=== PATIENT | female | born 1940 | race Caucasian/White ===

== ENCOUNTER → 2017-08-25 | Outpatient (CLI) | payer MEDICARE ==
[~2017-08-25] MED LIST: APIX5TAB PO; ARMO150T2 PO; ASPI-1181 PO; BUPR-93 PO; DESV50TA PO; DOXY100C2 PO; ESOM40CA PO; HYDR-4064 PO; IBAN150T PO; LEVO5TAB13 PO; LEVO75TA10 PO; MAGOX PO; MONT10TA24 PO; MORP15TA70 PO; PREG200C PO; ROSU40 PO; SIME80TA12 PO; SOLI10TA PO; THEO400T3 PO; TOPI25TA48 PO
== END | disposition home or self-care (01) ==
LOC: OIH 10:36
PROVIDERS: ATTEND Otolaryngology
DX: J32.9 Chronic sinusitis, unspecified (principal)
CPT/HCPCS: 70486

== ENCOUNTER → 2018-12-05 | Outpatient (CLI) | payer MEDICARE ==
[~2018-12-05] MED LIST changes: +AMLO2.5T4 PO; -BUPR-93 PO; -IBAN150T PO; +IBAN150T16 PO; +IOHEXOL 350 MG/ML 100ML INFUS..BTL IV ONE; +IOHEXOL-350 50ML VIAL IV ONE; +LACT10SO9 PO; -LEVO5TAB13 PO; +LIDOCAINE HCL 2% 20ML ONE; +LOSA50TA64 PO; -MAGOX PO; +MEPERIDINE-PF 25 MG/ML SYG ONE; +MIDAZOLAM HCL 1 MG/ML 2ML VIAL ONE; -MONT10TA24 PO; +NITROGLYCERIN 5 MG/ML 10 ML VIAL IV ONE; -ROSU40 PO; +SODIUM BICARB 50MEQ 50ML VIAL ONE; -THEO400T3 PO
== END | disposition home or self-care (01) ==
LOC: SHCH 14:01
PROVIDERS: ATTEND Internal Medicine Cardiovascular Disease
DX: I65.23 Occlusion and stenosis of bilateral carotid arteries (principal); I87.2 Venous insufficiency (chronic) (peripheral); I25.119 Atherosclerotic heart disease of native coronary artery with unspecified angina pectoris
CPT/HCPCS: 93880; 93970; J1644; J2175; J2250; J3490; Q9967

== ENCOUNTER 2018-12-06 06:50 | Day surgery (SDC) | payer MEDICARE ==
[2018-12-01 11:38] LABS: EOSINOPHILS % (AUTO) 3.8 % (0.0-8.0); HEMATOCRIT 40.6 % (36-48); LYMPHOCYTES % (AUTO) 37.1 % (21.0-51.0); MEAN CORPUSCULAR HGB CONC 33.3 g/dL (32.0-36.0); NEUTROPHILS % (AUTO) 47.1 % (40.0-77.0); NUCLEATED RED BLOOD CELLS 0.1 % (0.0-0.19); PLATELET COUNT (AUTO) 153 K/uL (130-400); RED BLOOD CELL COUNT(AUTO) 4.37 MIL/uL (4.00-5.50); RED CELL DISTRIBUTION WIDTH 14.6 % (11.0-15.5); WHITE BLOOD COUNT (AUTO) 4.5 K/uL (4.8-10.8)
[2018-12-01 11:45] VITALS: BP 97/61
[2018-12-01 11:46] LABS: CREATININE 0.7 mg/dL (0.5-1.5)
[2018-12-01 11:49] LABS: INR 0.96 (0.85-1.15); PARTIAL THROMBOPLASTIN TIME 29.2 SEC (26.3-35.5); PROTHROMBIN TIME 10.1 SEC (9.6-11.6)
[2018-12-01 12:05] LABS: APPEARANCE,URINE Clear (CLEAR); BILIRUBIN,URINE Negative (NEGATIVE); COLOR,URINE Yellow (YELLOW); GLUCOSE, URINE (UA) Negative (NEGATIVE); KETONES,URINE Negative (NEGATIVE); LEUKOCYTE ESTERASE ,URINE Small (NEGATIVE); NITRATE,URINE Negative (NEGATIVE); OCCULT BLOOD,URINE Negative (NEGATIVE); PROTEIN,URINE Negative (NEGATIVE); UROBILINOGEN,URINE 0.2 mg/dL (0.2-1.0)
--- NOTE | 2018-12-01 12:40 | NUR ---
HANY SPOKE WITH THELMA GOMEZ. PATENT ON HANY PER THELMA TO STOP MED 2 DAY PRIOR TO PROCEDURE.
[2018-12-01 12:45] LABS: BACTERIA,URINE Few /HPF (None Seen); RBC,URINE 0-1 /HPF (0-1)
--- NOTE | 2018-12-05 10:45 | NUR ---
ABNORMAL LABS ABNORMAL UA RESULT REPORTED TO ANGELINE VALDEZ AT [facility]. PER JOSÉ MIGUEL, UA RESULTS REPORTED TO PATRICIA SHELTON FOR DR. BELLO. NO FURTHER ORDERS GIVEN, MAY PROCEED WITH PLANNED PROCEDURE.
[2018-12-06] VITALS (11 sets, daily range): BP systolic 125–151; BP diastolic 60–88
[~2018-12-06] VITALS: Ht 149.9 cm; Wt 65.3 kg
[~2018-12-06 06:50] MED LIST changes: -IOHEXOL 350 MG/ML 100ML INFUS..BTL IV ONE; -IOHEXOL-350 50ML VIAL IV ONE; -LIDOCAINE HCL 2% 20ML ONE; -MEPERIDINE-PF 25 MG/ML SYG ONE; -MIDAZOLAM HCL 1 MG/ML 2ML VIAL ONE; -NITROGLYCERIN 5 MG/ML 10 ML VIAL IV ONE; -SODIUM BICARB 50MEQ 50ML VIAL ONE
[2018-12-06] MEDS ORDERED: SODIUM CHLORIDE 0.9% 1000ML 1,000 ML IV SCH (08:00)
[2018-12-06] MEDS ORDERED: IOHEXOL 350 MG/ML 100ML INFUS..BTL IV ONE (08:03)
[2018-12-06] MEDS ORDERED: SODIUM BICARB 8.4% 50ML SYRINGE IVP ONE (08:03)
[2018-12-06] MEDS ORDERED: LIDOCAINE HCL 1% 20 ML VIAL MISC ONE (08:03)
[2018-12-06] MEDS ORDERED: NITROGLYCERIN 5 MG/ML 10 ML VIAL IV ONE (08:03)
[2018-12-06] MEDS ORDERED: MIDAZOLAM HCL 1 MG/ML 2ML VIAL IVPB ONE (08:25)
[2018-12-06] MEDS ORDERED: MEPERIDINE-PF 25 MG/ML SYG IV ONE (08:25)
[2018-12-06] MEDS ORDERED: SODIUM CHLORIDE 0.9% 10 ML VIAL IVP SCH (09:30)
[2018-12-06] MEDS ORDERED: HEPARIN SODIUM/PF 100UNIT/ML 5ML SYRINGE IV ONE ×2 (12:30→13:42)
== END 2018-12-06 14:00 | disposition home or self-care (01) ==
LOC: DAH 06:50
PROVIDERS: ATTEND Internal Medicine Cardiovascular Disease
DX: I25.118 Atherosclerotic heart disease of native coronary artery with other forms of angina pectoris (principal); I10 Essential (primary) hypertension; E78.5 Hyperlipidemia, unspecified; F41.9 Anxiety disorder, unspecified; F32.9 Major depressive disorder, single episode, unspecified; E03.9 Hypothyroidism, unspecified; J44.9 Chronic obstructive pulmonary disease, unspecified; G47.33 Obstructive sleep apnea (adult) (pediatric); F17.210 Nicotine dependence, cigarettes, uncomplicated; D64.9 Anemia, unspecified; Z95.5 Presence of coronary angioplasty implant and graft; Z88.8 Allergy status to other drugs, medicaments and biological substances; Z79.01 Long term (current) use of anticoagulants; Z79.899 Other long term (current) drug therapy; Z88.1 Allergy status to other antibiotic agents; Z88.2 Allergy status to sulfonamides; Z79.82 Long term (current) use of aspirin; Z98.890 Other specified postprocedural states; Z82.49 Family history of ischemic heart disease and other diseases of the circulatory system; Z82.5 Family history of asthma and other chronic lower respiratory diseases
CPT/HCPCS: 36415; 71045; 80048; 81001; 85025; 85610; 85730; 93005; 93458; A4215; A4216; A4221; A4222; A4223 ×3; A4606; C1760; C1894; J1642; J1644; J2175; J2250; J3490 ×2; Q9965; Q9967; 99156; 99157

== ENCOUNTER 2019-03-06 18:29 | Observation (INO) | payer MEDICARE ==
[~2019-03-06] VITALS: Ht 149.9 cm; Wt 65.0 kg
[2019-03-06] MEDS ORDERED: ZOSYN 3.375GM+NS 50ML 50 ML IV ONE (20:32)
[2019-03-06] MEDS ORDERED: SODIUM CHLORIDE 0.9% 1000ML 1,000 ML IV ONE ×2 (20:33→22:47)
[2019-03-06 20:48] LABS: BASOPHILS % (AUTO) 0.7 % (0.0-5.0); EOSINOPHILS % (AUTO) 1.6 % (0.0-8.0); LYMPHOCYTES % (AUTO) 22.8 % (21.0-51.0); MEAN CORPUSCULAR HEMOGLOBIN 30.6 pg (27.0-33.0); MEAN CORPUSCULAR HGB CONC 33.5 g/dL (32.0-36.0); MEAN CORPUSCULAR VOLUME 91.2 fL (79-99); MONOCYTES % (AUTO) 10.8 % (3.0-13.0); NEUTROPHILS % (AUTO) 64.1 % (40.0-77.0); PLATELET COUNT (AUTO) 189 K/uL (130-400); RED BLOOD CELL COUNT(AUTO) 4.49 MIL/uL (4.00-5.50); RED CELL DISTRIBUTION WIDTH 14.3 % (11.0-15.5); WHITE BLOOD COUNT (AUTO) 7.3 K/uL (4.8-10.8)
[2019-03-06 20:52] LABS: CARBON DIOXIDE 30 mmol/L (21-32); CHLORIDE 101 mmol/L (101-111); CREATININE 1.6 mg/dL (0.5-1.5); GLOMERULAR FILTR. RATE CALC 33 mL/min (>60); GLUCOSE,RANDOM 126 mg/dL (70-105); POTASSIUM 3.5 mmol/L (3.5-5.1); SODIUM SERUM 137 mmol/L (136-145); UREA NITROGEN, BLOOD 27 mg/dL (7-18)
[2019-03-06 20:53] LABS: PARTIAL THROMBOPLASTIN TIME 26.5 SEC (26.3-35.5); PROTHROMBIN TIME 10.5 SEC (9.6-11.6)
[2019-03-06 21:05] LABS: ALANINE AMINOTRANSFERASE 33 U/L (12-78); ALBUMIN 3.2 g/dL (3.5-5.0); ASPARTATE AMINOTRANSFERASE 37 U/L (10-37); BILIRUBIN,TOTAL 0.2 mg/dL (0.2-1.0); CREATINE KINASE, TOTAL 81 U/L (21-232); MYOGLOBIN 111 ng/mL (10-92); TOTAL PROTEIN, SERUM 6.5 g/dL (6.0-8.3); TROPONIN I < 0.04 ng/mL (0.00-0.06)
[2019-03-06 21:46] LABS: APPEARANCE,URINE Clear (CLEAR); BILIRUBIN,URINE Negative (NEGATIVE); COLOR,URINE Yellow (YELLOW); GLUCOSE, URINE (UA) Negative (NEGATIVE); KETONES,URINE Negative (NEGATIVE); LEUKOCYTE ESTERASE ,URINE Small (NEGATIVE); NITRATE,URINE Negative (NEGATIVE); OCCULT BLOOD,URINE Negative (NEGATIVE); PH,URINE 5.5 (5.0-8.0); PROTEIN,URINE Trace mg/dL (NEGATIVE); UROBILINOGEN,URINE 0.2 mg/dL (0.2-1.0)
[2019-03-06 22:12] LABS: BACTERIA,URINE Few /HPF (None Seen); MUCUS,URINE Rare LPF (None Seen); RBC,URINE 0-1 /HPF (0-1); SQUAMOUS EPITHELIAL CELL,UR Few /HPF (0-2)
[2019-03-06 22:13] LABS: HYALINE CASTS, URINE 0-1 /LPF (0-1 /LPF)
[2019-03-06] MEDS ORDERED: ONDANSETRON HCL 4 MG/2 ML VIAL IVP PRN (23:45)
[2019-03-06] MEDS ORDERED: ACETAMINOPHEN 325 MG TAB PO PRN (23:45)
[2019-03-06] MEDS ORDERED: CEFTRIAXONE SODIUM 1 GM ONE (23:50)
[2019-03-07] MEDS: CEFTRIAXONE SODIUM 1 GM IVP SCH
[2019-03-07 01:00] VITALS: BP 96/50
[2019-03-07 04:15] LABS: HEMATOCRIT 37.5 % (36-48); MEAN CORPUSCULAR HEMOGLOBIN 30.7 pg (27.0-33.0); MEAN CORPUSCULAR HGB CONC 33.3 g/dL (32.0-36.0); MEAN CORPUSCULAR VOLUME 92.4 fL (79-99); NUCLEATED RED BLOOD CELLS 0.1 % (0.0-0.19); PLATELET COUNT (AUTO) 163 K/uL (130-400); RED BLOOD CELL COUNT(AUTO) 4.06 MIL/uL (4.00-5.50); RED CELL DISTRIBUTION WIDTH 14.8 % (11.0-15.5); WHITE BLOOD COUNT (AUTO) 5.5 K/uL (4.8-10.8)
[2019-03-07 04:32] LABS: CREATININE 1.1 mg/dL (0.5-1.5); MAGNESIUM 1.9 mg/dL (1.80-2.40)
[2019-03-07 04:39] VITALS: BP 109/68
[2019-03-07] MEDS: SODIUM CHLORIDE 0.9% 1000ML 1,000 ML IV SCH ×3 (05:27→20:20)
[2019-03-07] MEDS ORDERED: HYDR-4060 PO (05:47)
[2019-03-07] MEDS: IPRATROPIUM/ALBUTEROL SULFATE 3 ML SOLUTION IH PRN ×3 (06:23→18:05)
[2019-03-07] MEDS ORDERED: LIDOCAINE HCL-MPF 1% 2ML VIAL IV PRN (07:15)
[2019-03-07] MEDS ORDERED: POTASSIUM CHLORIDE 20 MEQ ERTAB PO PRN (07:15)
[2019-03-07] MEDS ORDERED: POTASSIUM CHLORIDE 10% ELIXIR 20 MEQ/15 ML UDCUP PO PRN (07:15)
[2019-03-07] MEDS ORDERED: MAGNESIUM 2GM PREMIX 50ML 50 ML IV PRN ×2 (07:15→08:45)
[2019-03-07] MEDS ORDERED: POTASSIUM CHLORIDE 20MEQ/100ML 100 ML IV PRN (07:15)
[2019-03-07 07:45] VITALS: BP 118/50
[2019-03-07] MEDS: LEVOTHYROXINE 75 MCG TABLET PO SCH (07:57)
[2019-03-07] MEDS: APIXABAN 5 MG TABLET PO SCH ×2 (07:57→20:15)
--- NOTE | 2019-03-07 08:00 | NUR ---
ASSESSMENT PT IS AAOX3 DENIES CP DENIES SOB RESTING IN BED AT THIS TIME. BREATHING PATTERN IS EVEN AND UNLABORED. NO COMPLAINTS, IV MAG REPLACEMENT IN PROGRESS, PO POTASSIUM REPLACEMENT IN PROGRESS. CALL LIGHT WITHIN REACH.
[2019-03-07] MEDS: POTASSIUM CHLORIDE 20 MEQ ERTAB PO SCH ×3 (08:49→20:15)
[2019-03-07] MEDS ORDERED: ASPIRIN 81 MG EC TAB PO SCH (09:00)
[2019-03-07] MEDS ORDERED: ONDANSETRON HCL 4 MG/2 ML VIAL IV PRN (10:15)
[2019-03-07] MEDS ORDERED: HYDROCODONE/ACETAMINOPHEN 5/325 MG TAB PO PRN (10:15)
[2019-03-07] MEDS ORDERED: GUAIFENESIN-DM 200/20 MG 10 ML PO PRN (10:15)
[2019-03-07] MEDS ORDERED: HYDRALAZINE HCL 20 MG/ML VIAL IV PRN (10:15)
[2019-03-07] MEDS ORDERED: ACETAMINOPHEN 325 MG TAB PO PRN ×2 (10:15)
[2019-03-07] MEDS ORDERED: NITROGLYCERIN 0.4 MG SL TAB SL PRN (10:15)
[2019-03-07 11:41] VITALS: BP 91/40
--- NOTE | 2019-03-07 13:00 | NUR ---
STATUS ASSISTED UP TO SHOWER, BACK TO BED. NO COMPLAINTS. MEDS GIVEN ORDERED, WATCHING TV. CALL LIGHT WITHIN REACH.
[2019-03-07] MEDS: BENZONATATE 100 MG CAPSULE PO SCH ×2 (13:06→20:15)
[2019-03-07 13:27] LABS: MAGNESIUM 2.4 mg/dL (1.80-2.40)
[2019-03-07 15:37] VITALS: BP 113/66
--- NOTE | 2019-03-07 16:45 | NUR ---
STATUS NO COMPLAINTS DENIES PAIN, RESTING IN BED. CALL LIGHT WITHIN REACH.
[2019-03-07 20:17] VITALS: BP 112/63
[2019-03-08 00:23] VITALS: BP 131/75
[2019-03-08] MEDS: CEFTRIAXONE SODIUM 1 GM IVP SCH (02:45)
[2019-03-08 04:11] VITALS: BP 146/72
[2019-03-08] MEDS: IPRATROPIUM/ALBUTEROL SULFATE 3 ML SOLUTION IH PRN (05:20)
[2019-03-08] MEDS: LEVOTHYROXINE 75 MCG TABLET PO SCH (05:56)
[2019-03-08 06:21] LABS: CREATININE 0.7 mg/dL (0.5-1.5); POTASSIUM 3.8 mmol/L (3.5-5.1)
[2019-03-08 06:52] LABS: BASOPHILS % (AUTO) 1.4 % (0.0-5.0); EOSINOPHILS % (AUTO) 2.3 % (0.0-8.0); HEMATOCRIT 38.6 % (36-48); LYMPHOCYTES % (AUTO) 36.9 % (21.0-51.0); MEAN CORPUSCULAR HEMOGLOBIN 30.6 pg (27.0-33.0); MEAN CORPUSCULAR HGB CONC 33.6 g/dL (32.0-36.0); MONOCYTES % (AUTO) 8.6 % (3.0-13.0); NEUTROPHILS % (AUTO) 50.8 % (40.0-77.0); NUCLEATED RED BLOOD CELLS 0.1 % (0.0-0.19); PLATELET COUNT (AUTO) 166 K/uL (130-400); RED BLOOD CELL COUNT(AUTO) 4.24 MIL/uL (4.00-5.50); RED CELL DISTRIBUTION WIDTH 14.4 % (11.0-15.5); WHITE BLOOD COUNT (AUTO) 6.5 K/uL (4.8-10.8)
--- NOTE | 2019-03-08 07:45 | NUR ---
ASSESSMENT ENCOUNTERED PT ASLEEP BUT AROUSEABLE WITH CPAP IN PLACE, A&OX3, CALM COOPERATIVE AND DOES NOT APPEAR TO BE IN ANY DISTRESS NOR ANY NEURO DEFICITS PRESENT. PT DENIES PAIN, SOB, NAUSEA. PT IS AMBULATORY, GAIT STEADY AND STRONG WITH STAND BY ASSIST. CALL LIGHT WITHIN REACH, FAMILY AT BEDSIDE.
[2019-03-08 08:05] VITALS: BP 152/81
[2019-03-08] MEDS ORDERED: LACTULOSE 20 GM/30 ML UDCUP PO SCH (09:00)
[2019-03-08] MEDS ORDERED: FAMOTIDINE 20MG TAB 20 MG TAB PO SCH (09:00)
[2019-03-08] MEDS ORDERED: LEVO500T2 PO (09:01)
[2019-03-08] MEDS ORDERED: MORPHINE SULFATE 2 MG/ML 1ML SYG ONE (09:41)
--- NOTE | 2019-03-08 09:45 | NUR ---
REFUSING O2 EVALUATION AND IV MORPHINE PT STATES SHE DOESN'T NEED TO EVALUATED FOR HOME O2 AND SHE PREFERS TO TAKE HER MORPHINE TABLET AT HOME AFTER DISCHARGE HEBERT JASSO UPDATED, ORDERS RECEIVED.
[2019-03-08] MEDS ORDERED: LOSA50TA64 PO (09:49)
[2019-03-08] MEDS ORDERED: AMLO2.5T4 PO (09:49)
[2019-03-08] MEDS ORDERED: MORPHINE SULFATE 2 MG/ML 1ML SYG IM SCH (10:10)
[2019-03-08] MEDS ORDERED: HEPARIN SODIUM/PF 100UNIT/ML 5ML SYRINGE IV SCH (10:15)
--- NOTE | 2019-03-08 10:30 | NUR ---
DISCHARGE INSTRUCTIONS GIVEN, PORTACATH FLUSHED WITH HEPARIN, ROJAS NEEDLE REMOVED, DISCHARGED HOME TO FAMILY VEHICLE VIA WHEELCHAIR.
== END 2019-03-08 10:40 | disposition home or self-care (01) ==
LOC: EDH 18:29 → EDHIP 23:07 → 2DH 23:57
PROVIDERS: ADMIT Internal Medicine Critical Care Medicine; ATTEND Internal Medicine Critical Care Medicine
DX: I95.9 Hypotension, unspecified (principal); N39.0 Urinary tract infection, site not specified; E87.6 Hypokalemia; I12.9 Hypertensive chronic kidney disease with stage 1 through stage 4 chronic kidney disease, or unspecified chronic kidney disease; N18.9 Chronic kidney disease, unspecified; K58.9 Irritable bowel syndrome, unspecified; J44.9 Chronic obstructive pulmonary disease, unspecified; I26.99 Other pulmonary embolism without acute cor pulmonale; M81.0 Age-related osteoporosis without current pathological fracture; E88.81 Metabolic syndrome and other insulin resistance; G47.419 Narcolepsy without cataplexy; I25.10 Atherosclerotic heart disease of native coronary artery without angina pectoris; M19.90 Unspecified osteoarthritis, unspecified site; F17.200 Nicotine dependence, unspecified, uncomplicated; Z85.3 Personal history of malignant neoplasm of breast; Z99.89 Dependence on other enabling machines and devices; Z90.710 Acquired absence of both cervix and uterus; Z79.01 Long term (current) use of anticoagulants; Z79.899 Other long term (current) drug therapy; Z88.2 Allergy status to sulfonamides; Z88.8 Allergy status to other drugs, medicaments and biological substances
CPT/HCPCS: 36415; 71045; 80048; 80053; 81001; 82550; 83605; 83735; 83874; 84132; 84145; 84484; 85025; 85027; 85610; 85730; 87040; 87088; 93005; 94640; 94664; 96361; 96365; 96366; 96367; 96368; 96375; 97039; 99291; G0378; J0696; J1642; J2543; J3475; J3480; J7030

== ENCOUNTER → 2019-06-03 | Outpatient (CLI) | payer MEDICARE ==
[~2019-06-03] MED LIST changes: -DESV50TA PO; -DOXY100C2 PO; -ESOM40CA PO; +HYDR-4060 PO; -HYDR-4064 PO; -LACT10SO9 PO; +LEVO500T2 PO; -SIME80TA12 PO
== END | disposition home or self-care (01) ==
LOC: SHCH 05-31 10:00
PROVIDERS: ATTEND Internal Medicine Cardiovascular Disease
DX: I08.0 Rheumatic disorders of both mitral and aortic valves (principal); I65.23 Occlusion and stenosis of bilateral carotid arteries
CPT/HCPCS: 93306; 93356

== ENCOUNTER → 2019-06-05 | Outpatient (CLI) | payer MEDICARE | END | disposition home or self-care (01) | LOC: SHCH 11:00 | PROVIDERS: ATTEND Internal Medicine Cardiovascular Disease | DX: I65.23 Occlusion and stenosis of bilateral carotid arteries (principal) | CPT/HCPCS: 93880 ==

== ENCOUNTER → 2019-06-27 | Outpatient (CLI) | payer MEDICARE ==
[~2019-06-27] MED LIST changes: +IOHEXOL-350 50ML VIAL IV ONE
== END | disposition home or self-care (01) ==
LOC: RAH 13:54
PROVIDERS: ATTEND Family Medicine
DX: J98.11 Atelectasis (principal); J44.9 Chronic obstructive pulmonary disease, unspecified; I51.7 Cardiomegaly; M43.8X4 Other specified deforming dorsopathies, thoracic region; R63.4 Abnormal weight loss
CPT/HCPCS: 71260; Q9967

== ENCOUNTER → 2020-10-30 | Outpatient (CLI) | payer MEDICARE ==
[~2020-10-30] MED LIST changes: -ASPI-1181 PO; +ASPI-1443 PO; -IOHEXOL-350 50ML VIAL IV ONE
== END | disposition home or self-care (01) ==
LOC: SHCH 12:17
PROVIDERS: ATTEND Internal Medicine Cardiovascular Disease
DX: I65.23 Occlusion and stenosis of bilateral carotid arteries (principal); I70.293 Other atherosclerosis of native arteries of extremities, bilateral legs; R06.02 Shortness of breath; R53.83 Other fatigue; R42 Dizziness and giddiness; Z79.899 Other long term (current) drug therapy
CPT/HCPCS: 93880; 93925

== ENCOUNTER → 2020-11-01 | Outpatient (CLI) | payer MEDICARE ==
[~2020-11-01] MED LIST changes: +REGADENOSON 0.4 MG/5 ML PF SYG IVP SCH
== END | disposition home or self-care (01) ==
LOC: SHCH 08:10
PROVIDERS: ATTEND Internal Medicine Cardiovascular Disease
DX: I25.10 Atherosclerotic heart disease of native coronary artery without angina pectoris (principal); I10 Essential (primary) hypertension; R06.09 Other forms of dyspnea; Z98.61 Coronary angioplasty status
CPT/HCPCS: 78452; 93017; 96374; A9500 ×2; J2785

== ENCOUNTER → 2022-04-29 | Outpatient (CLI) | payer OTHER ==
[~2022-04-29] MED LIST changes: -REGADENOSON 0.4 MG/5 ML PF SYG IVP SCH
== END | disposition home or self-care (01) ==
LOC: RAH 09:14
PROVIDERS: ATTEND Family Medicine
DX: R89.9 Unspecified abnormal finding in specimens from other organs, systems and tissues (principal)
CPT/HCPCS: 93922

== ENCOUNTER → 2023-01-19 | Outpatient (CLI) | payer OTHER | END | disposition home or self-care (01) | LOC: SHCH 14:03 | PROVIDERS: ATTEND Internal Medicine Cardiovascular Disease | DX: I08.0 Rheumatic disorders of both mitral and aortic valves (principal); I11.9 Hypertensive heart disease without heart failure; E78.5 Hyperlipidemia, unspecified; I65.23 Occlusion and stenosis of bilateral carotid arteries; Z95.828 Presence of other vascular implants and grafts | CPT/HCPCS: 93306; 93880 ==

== ENCOUNTER → 2023-08-03 | Outpatient (CLI) | payer OTHER | END | disposition home or self-care (01) | LOC: SHCH 15:00 | PROVIDERS: ATTEND Internal Medicine Cardiovascular Disease | DX: I87.2 Venous insufficiency (chronic) (peripheral) (principal); R60.9 Edema, unspecified; R60.0 Localized edema; R42 Dizziness and giddiness; R06.09 Other forms of dyspnea; Z79.899 Other long term (current) drug therapy | CPT/HCPCS: 93970 ==

== ENCOUNTER 2023-09-20 05:48 | Day surgery (SDC) | payer OTHER ==
[2023-09-17 12:09] VITALS: BP 107/65; PULSE 83; RESP 16
[2023-09-17 12:24] LABS: BASOPHILS # (AUTO) 0.05 K/uL (0.00-0.20); EOSINOPHILS # (AUTO) 0.21 K/uL (0.00-0.70); EOSINOPHILS % (AUTO) 4.3 % (0.0-8.0); HEMATOCRIT 42.7 % (36-48); IMMATURE GRANULOCYTE ABSOLUTE 0.01 K/uL (0-1); LYMPHOCYTES # (AUTO) 1.3 K/uL (1.0-4.8); LYMPHOCYTES % (AUTO) 26.1 % (21.0-51.0); MEAN CORPUSCULAR HEMOGLOBIN 29.5 pg (27.0-33.0); MEAN CORPUSCULAR HGB CONC 32.1 g/dL (32.0-36.0); MONOCYTES # (AUTO) 0.3 K/uL (0.1-1.0); MONOCYTES % (AUTO) 6.9 % (3.0-13.0); NEUTROPHILS % (AUTO) 61.5 % (40.0-77.0); PLATELET COUNT (AUTO) 201 K/uL (130-400); RED BLOOD CELL COUNT(AUTO) 4.64 MIL/uL (4.00-5.50); RED CELL DISTRIBUTION WIDTH 15.4 % (11.0-15.5); WHITE BLOOD COUNT (AUTO) 4.9 K/uL (4.8-10.8)
[2023-09-17 12:35] LABS: INR <= 0.93 (0.85-1.15); PROTHROMBIN TIME 10.3 SEC (9.6-11.6)
[2023-09-17 12:36] LABS: APPEARANCE,URINE CLEAR (CLEAR); BILIRUBIN,URINE NEGATIVE (NEGATIVE); COLOR,URINE YELLOW (YELLOW); GLUCOSE, URINE (UA) NEGATIVE (NEGATIVE); KETONES,URINE NEGATIVE (NEGATIVE); LEUKOCYTE ESTERASE ,URINE 75 Leu/uL (NEGATIVE); NITRATE,URINE NEGATIVE (NEGATIVE); OCCULT BLOOD,URINE NEGATIVE (NEGATIVE); PROTEIN,URINE NEGATIVE (NEGATIVE); UROBILINOGEN,URINE 0.2 mg/dL (0.2-1.0)
[2023-09-17 12:36] LABS: PARTIAL THROMBOPLASTIN TIME 27.6 SEC (26.3-35.5); POTASSIUM 4.2 mmol/L (3.5-5.1)
[2023-09-17 12:42] LABS: ADD UA MICROSCOPIC YES
[2023-09-17 12:44] LABS: BACTERIA,URINE RARE /HPF (None Seen); MUCUS,URINE RARE LPF (None Seen); SQUAMOUS EPITHELIAL CELL,UR FEW /HPF (0-2); WBC,URINE 26-50 /HPF (0-1)
[2023-09-17 12:51] LABS: B-TYPE NATRIURETIC PEPTIDE 41 pg/mL (0-100)
[~2023-09-20] VITALS: Ht 149.9 cm; Wt 57.3 kg
[2023-09-20] VITALS (7 sets, daily range): BP systolic 109–157; BP diastolic 57–94; PULSE 60–68; RESP 14–16
[~2023-09-20 05:48] MED LIST changes: -AMLO2.5T4 PO; -APIX5TAB PO; -ARMO150T2 PO; +ASCO500C18 PO; +CALC-1125 PO; +CETI-89 PO; +CHOL500051 PO; +COQ10 PO; +CYAN-106 PO; +DONE10TA43 PO; +DOXY100C5 PO; +LACT10SO95 PO; -LEVO500T2 PO; -LOSA50TA64 PO; +MIRA50TA PO; +MONT-39 PO; -PREG200C PO; +PRESERVISION PO; +ROSU20TA23 PO; +SERT-440 PO; -SOLI10TA PO; +SOLIFENACIN PO; +THEO400T3 PO; -TOPI25TA48 PO
[2023-09-20] MEDS: 0.9%NACL 1000ML 1,000 ML IV ONE (06:24)
[2023-09-20] MEDS ORDERED: LIDOCAINE HCL 400MG/20ML VIAL ONE (07:21)
[2023-09-20] MEDS ORDERED: SODIUM BICARB 50MEQ 50ML VIAL 50 ML ONE (07:21)
[2023-09-20] MEDS ORDERED: MIDAZOLAM HCL 1 MG/ML 2ML VIAL ONE ×2 (07:22→07:40)
[2023-09-20] MEDS ORDERED: FENTANYL CITRATE PF 50 MCG/1 ML 2ML VIAL ONE (07:22)
[2023-09-20] MEDS ORDERED: IOHEXOL-350 75 ML VIAL IV ONE (07:23)
[2023-09-20] MEDS ORDERED: IOHEXOL-350 50ML VIAL IV ONE (07:29)
[2023-09-20] MEDS ORDERED: MEPERIDINE-PF 25 MG/ML SYG ONE (07:40)
[2023-09-20] MEDS ORDERED: 0.9%NACL 10ML VIAL IVP SCH (08:30)
[2023-09-20] MEDS: ACETAMINOPHEN 325 MG TAB PO ONE (09:40)
[2023-09-20] MEDS: HEPARIN PF LOCK 500 UNIT/5ML IV ONE (10:02)
== END 2023-09-20 10:10 | disposition home or self-care (01) ==
LOC: DAH 05:48
PROVIDERS: ATTEND Internal Medicine Cardiovascular Disease
DX: I82.401 Acute embolism and thrombosis of unspecified deep veins of right lower extremity (principal); D64.9 Anemia, unspecified; J44.9 Chronic obstructive pulmonary disease, unspecified; G47.33 Obstructive sleep apnea (adult) (pediatric); Z88.2 Allergy status to sulfonamides; Z79.01 Long term (current) use of anticoagulants; Z79.899 Other long term (current) drug therapy
CPT/HCPCS: 80048; 83880; 85025; 85610; 85730; 87088; 81001; 36415; 71045; 93005; 37191; A4606; C1769; C1894 ×2; C1880; C1760; J3010; J3490 ×2; J1642; J7030; J2250 ×2; J2175; J1644; Q9967; A4215; A4222; A4221; A4663; A4216; A4223 ×3; 99156; 99157

== ENCOUNTER → 2024-04-20 | Outpatient (CLI) | payer OTHER ==
[~2024-04-20] MED LIST changes: -CETI-89 PO; +CETI10TA57 PO; -DOXY100C5 PO; +FLUT16H EN; +LACT-451 PO; -LACT10SO95 PO; +LIFI1DRO OP; +MORP-108 PO; -MORP15TA70 PO; +PANT40TA PO; -ROSU20TA23 PO; +ROSU40TA88 PO; -SOLIFENACIN PO
--- NOTE | 2024-04-20 13:59 | HMCIMG ---
US PELVIC NON-OB COMP REASON: ABN BLEEDING COMPARISON: None TECHNIQUE: Routine pelvic sonogram was performed. FINDINGS: There are normal-appearing urinary bladder. Uterus and ovaries are absent. There are no masses in the uterine bed. Adnexal regions appear unremarkable as well. IMPRESSION: 1. Absent uterus, otherwise negative.
== END | disposition home or self-care (01) ==
LOC: RAH 13:08
PROVIDERS: ATTEND Family Medicine
DX: N93.9 Abnormal uterine and vaginal bleeding, unspecified (principal); Z90.710 Acquired absence of both cervix and uterus; Z90.722 Acquired absence of ovaries, bilateral
CPT/HCPCS: 76856

== ENCOUNTER → 2024-07-05 | Outpatient (CLI) | payer OTHER ==
--- NOTE | 2024-07-10 14:53 | HMCSR ---
APPROVED REPORT EXAM: Two-dimensional and M-mode echocardiogram with Doppler and color Doppler. INDICATION ICD: Aortic valve disorders I35.0 2D Dimensions RVDd3.2 cmLVEF(%)55.0 (>50%)LVED Vol(simp.)71.0 mL IVSd1.0 (0.7-1.1cm)FS(%)27 %LVES Vol(simp.)34.0 mL LVDd4.4 (3.8-5.6cm)Ao Root(2D)2.9 (2.0-3.7cm)LVEF(%, simp.)53 % PWd0.9 (0.7-1.1cm)LVOT diam2.0 (1.8-2.4cm)LA ESV INDEX (BP)36.69 mL/m2 LVDs3.2 (2.5-4.0cm)IVC diam0.9 cm Aortic Valve AoV Vmax2.6 m/Alber Peak GR26.4 mmHgLVOT Vmax1.3 m/s AoV VTI0.5 mAo Mean GR13.9 mmHgLVOT VTI0.28 m KIKI (VMAX)1.9 cm2Al P1/2T408 msAVA (VTI) 1.9 cm2 Mitral Valve MV E Vmax83.6 cm/sDECEL Uzom768 msMV Peak GR10 mmHg MV A Vqle275.1 cm/sP 1/2 T108 msMV Mean GR2 mmHg E/A ratio0.6MVA (PHT)2.0 cm2MVA (VTI)2.2 cm2 TDI E/E' Pjisdr93.4E/E' Hvxzvys18.1 Pulmonary Valve PV Vmax0.7 m/sPV VTI0.13 mPV Mean GR1 mmHg PV Peak GR1.9 mmHg Tricuspid Valve TR Vmax2.5 m/sRAP (EST) 3 ynGeVPCE24.1 mmHg TR Peak GR24.1 mmHg Left Ventricle Left ventricular cavity size is normal. There is normal LV segmental wall motion. There is borderline to mild left ventricular hypertrophy. LVEF is 55%. No left ventricle thrombus noted on this study. S tage I diastolic dysfunction. Right Ventricle The right ventricle is normal size. The right ventricular systolic function is normal. Atria The left atrium is mildly dilated. The right atrium size is normal. Aortic Valve Aortic valve is trileaflet. The aortic valve is calcified and displays decreased opening. Trace to mi ld aortic regurgitation. Calculated aortic valve area is 1.9 cm2 with maximum pressure gradient of 26 .4 mmHg and mean pressure gradient of 13.9 mmHg. Mitral Valve Mitral annular calcification is moderate. Mitral valve leaflets are mildly sclerotic. There is no phylicia ral valve regurgitation noted. Calculated mitral valve area is 2.2 cm2 with maximum pressure gradient of 10.5 mmHg and mean pressure gradient of 2.5 mmHg. Tricuspid Valve The tricuspid valve leaflets appear normal. There is trace tricuspid regurgitation. Pulmonic Valve The pulmonic valve leaflets appears normal. There is no pulmonic valvular regurgitation. Great Vessels The aortic root is normal in size. The IVC is normal in size and collapses >50% with inspiration. Pericardium No pericardial effusion. Conclusion Left ventricular cavity size is normal. LVEF is 55%. Stage I diastolic dysfunction. The right ventricle is normal size. The left atrium is mildly dilated. Aortic valve is trileaflet. The aortic valve is calcified and displays decreased opening. Trace to mild aortic regurgitation. Calculated aortic valve area is 1.9 cm2 with maximum pressure gradient of 26.4 mmHg and mean pressure gradient of 13.9 mmHg. Mitral annular calcification is moderate. Mitral valve leaflets are mildly sclerotic. There is no mitral valve regurgitation noted. Calculated mitral valve area is 2.2 cm2 with maximum pressure gradient of 10.5 mmHg and mean pressure gradient of 2.5 mmHg. There is trace tricuspid regurgitation. There is no pulmonic valvular regurgitation. The aortic root is normal in size. The IVC is normal in size and collapses >50% with inspiration. No pericardial effusion.
--- NOTE | 2024-07-10 14:59 | HMCSR ---
APPROVED REPORT Laterality: Bilateral Indications i35.0 Doppler Spectral Velocity Analysis PSV / EDVPSV / EDV ECA (R) 269 / cm/sECA (L) 441 / cm/s dICA (R) 137 / 24 cm/sdICA (L) 70 / 16 cm/s Brian (R) 159 / 43 cm/smICA (L) 114 / 24 cm/s pICA (R) 105 / 33 cm/spICA (L) 103 / 28 cm/s dCCA (R) 42 / 9 cm/sdCCA (L) 44 / 8 cm/s mCCA (R) 44 / 12 cm/smCCA (L) 66 / 16 cm/s pCCA (R) 75 / 18 cm/spCCA (L) 89 / 23 cm/s Vert (R) 60 / cm/sVert (L) 24 / cm/s Subl. (R) 87 / cm/sSubl. (L) 114 / cm/s ICA/CCA 2.12ICA/CCA 1.28 Technologist Impression Mild Heterogenous plaque noted in the bilateral carotid arteries. Bilateral distal CCA/ ICA stents, appears patent. RITA highest Velocity 159 cm/s suggestive of 50-69% stenosis. Bilateral elevated ECA velocities noted. Conclusion Mild Heterogenous plaque noted in the bilateral carotid arteries. Bilateral distal CCA/ ICA stents, appears patent. RITA highest Velocity 159 cm/s suggestive of 50-69% stenosis. Bilateral elevated ECA velocities noted. Conclusion Mild Heterogenous plaque noted in the bilateral carotid arteries. Bilateral distal CCA/ ICA stents, appears patent. RITA highest Velocity 159 cm/s suggestive of 50-69% stenosis. Bilateral elevated ECA velocities noted.
== END | disposition home or self-care (01) ==
LOC: SHCH 12:45
PROVIDERS: ATTEND Internal Medicine Cardiovascular Disease
DX: I08.0 Rheumatic disorders of both mitral and aortic valves (principal); I65.23 Occlusion and stenosis of bilateral carotid arteries; I35.0 Nonrheumatic aortic (valve) stenosis
CPT/HCPCS: 93306; 93880